=== PATIENT | male | born 1980 ===

== ENCOUNTER 2021-01-28 13:29 | Emergency (ER) | payer OTHER ==
[2021-01-28] MEDS ORDERED: PROVENTIL HFA6.7 GM INH (17:22)
== END 2021-01-28 17:35 | disposition home or self-care (01) ==
LOC: ER1 13:29
DX: J20.9 Acute bronchitis, unspecified (principal); I10 Essential (primary) hypertension; Z88.0 Allergy status to penicillin; F17.200 Nicotine dependence, unspecified, uncomplicated; Z20.822 Contact with and (suspected) exposure to COVID-19
CPT/HCPCS: 71046; 94664; 99285; U0002

== ENCOUNTER 2021-03-21 06:45 | Emergency (ER) | payer OTHER ==
[~2021-03-21 06:45] MED LIST: PROVENTIL HFA6.7 GM INH
[2021-03-21 08:37] LABS: HEMOGLOBIN 13.4 gm/dl (14.0-17.5); RED BLOOD COUNT 4.31 M/UL (4.20-5.50); WHITE BLOOD COUNT 7.1 K/UL (4.5-11.0)
[2021-03-21 08:55] LABS: BUN/CREATININE RATIO 16 (0-10)
[2021-03-21] MEDS ORDERED: AUGMENTIN 875-1 EACH PO (17:03)
== END 2021-03-21 17:37 | disposition home or self-care (01) ==
LOC: ER1 06:45
PROVIDERS: Emergency Medicine
DX: R10.11 Right upper quadrant pain (principal); R10.13 Epigastric pain; F17.200 Nicotine dependence, unspecified, uncomplicated; B20 Human immunodeficiency virus [HIV] disease; Z88.0 Allergy status to penicillin
CPT/HCPCS: 76705; 80053; 83690; 85025; 99284; Q9967

== ENCOUNTER 2021-04-03 07:58 | Emergency (ER) | payer OTHER ==
[~2021-04-03 07:58] MED LIST changes: +AUGMENTIN 875-1 EACH PO
[2021-04-03] MEDS ORDERED: ZOFRAN ODT 4 MG4 MG PO (09:16)
[2021-04-03] MEDS ORDERED: TORADOL 10 MG T10 MG PO (09:16)
[2021-04-03] MEDS ORDERED: LIDOCAINE HCL10 ML MM (09:16)
[2021-04-03] MEDS ORDERED: PENVEE K 500 M500 MG PO (09:16)
== END 2021-04-03 10:30 | disposition home or self-care (01) ==
LOC: ER1 07:58
DX: K02.9 Dental caries, unspecified (principal); K05.10 Chronic gingivitis, plaque induced; F17.210 Nicotine dependence, cigarettes, uncomplicated
CPT/HCPCS: 96372; 99282; J1885

== ENCOUNTER 2021-04-18 02:49 | Emergency (ER) | payer OTHER ==
[~2021-04-18 02:49] MED LIST changes: +LIDOCAINE HCL10 ML MM; +PENVEE K 500 M500 MG PO; +TORADOL 10 MG T10 MG PO; +ZOFRAN ODT 4 MG4 MG PO
[2021-04-18] MEDS ORDERED: EPIPEN 2-P0.3 MG/0.3 INJ (06:01)
[2021-04-18] MEDS ORDERED: PROAIR HFA8.5 GM INH (06:01)
[2021-04-18] MEDS ORDERED: PEPCID40 MG PO (06:01)
[2021-04-18] MEDS ORDERED: PREDNISONE 20 M20 MG PO (06:01)
[2021-04-18] MEDS ORDERED: ZYRTEC10 MG PO (06:01)
== END 2021-04-18 06:30 | disposition home or self-care (01) ==
LOC: ER1 02:49
DX: T78.1XXA Other adverse food reactions, not elsewhere classified, initial encounter (principal); R21 Rash and other nonspecific skin eruption; J45.909 Unspecified asthma, uncomplicated; F17.200 Nicotine dependence, unspecified, uncomplicated; Z88.0 Allergy status to penicillin; Z91.010 Allergy to peanuts; Z20.822 Contact with and (suspected) exposure to COVID-19
CPT/HCPCS: 71045; 94640; 94664; 94760; 99283; U0002

== ENCOUNTER → 2021-12-27 | Outpatient (CLI) | payer OTHER ==
[~2021-12-27] MED LIST changes: +EPIPEN 2-P0.3 MG/0.3 INJ; +PEPCID40 MG PO; +PREDNISONE 20 M20 MG PO; +PROAIR HFA8.5 GM INH; +ZYRTEC10 MG PO
== END ==
LOC: KOH-I 10:57
DX: M25.552 Pain in left hip (principal)
CPT/HCPCS: 73502

== ENCOUNTER 2022-01-18 02:33 | Emergency (ER) | payer OTHER ==
[2022-01-18] MEDS ORDERED: DESCOVY 120-151 EACH PO (05:45)
[2022-01-18] MEDS ORDERED: TIVICAY50 MG PO (05:45)
[2022-01-18 06:39] LABS: HEMOGLOBIN 12.7 gm/dl (14.0-17.5); RED BLOOD COUNT 3.86 M/UL (4.20-5.50)
[2022-01-18] MEDS ORDERED: BACTRIM DS TAB1 EACH PO (06:58)
[2022-01-18 07:09] LABS: BUN/CREATININE RATIO 9 (0-10)
[2022-01-18] MEDS ORDERED: PROVENTIL HFA6.7 GM INH (08:00)
[2022-01-18] MEDS ORDERED: AEROCHAMBER1 EA XX (08:00)
== END 2022-01-18 08:15 | disposition home or self-care (01) ==
LOC: ER1 02:33
PROVIDERS: Family Medicine
DX: R06.02 Shortness of breath (principal); Z21 Asymptomatic human immunodeficiency virus [HIV] infection status; Z98.818 Other dental procedure status
CPT/HCPCS: 71046; 80053; 82550; 82553; 84484; 85025; 85379; 93005; 94664; 96360; 99285

== ENCOUNTER 2022-01-19 23:59 | Emergency (ER) | payer OTHER ==
[~2022-01-19 23:59] MED LIST changes: +AEROCHAMBER1 EA XX; +BACTRIM DS TAB1 EACH PO; +DESCOVY 120-151 EACH PO; +TIVICAY50 MG PO
[2022-01-20 01:40] LABS: HEMOGLOBIN 14.4 gm/dl (14.0-17.5); WHITE BLOOD COUNT 7.5 K/UL (4.5-11.0)
[2022-01-20 01:45] LABS: RED BLOOD COUNT 4.28 M/UL (4.20-5.50)
[2022-01-20 02:02] LABS: BUN/CREATININE RATIO 13 (0-10)
[2022-01-20] MEDS ORDERED: PREDNISONE 20 M20 MG PO (02:07)
== END 2022-01-20 02:56 | disposition home or self-care (01) ==
LOC: ER1 23:59
PROVIDERS: Student in an Organized Health Care Education/Training Program
DX: J45.909 Unspecified asthma, uncomplicated (principal); F17.210 Nicotine dependence, cigarettes, uncomplicated; Z23 Encounter for immunization; Z88.7 Allergy status to serum and vaccine
CPT/HCPCS: 71045; 80053; 85025; 94640; 94664; 96374; 99285; J1100